=== PATIENT | female | born 1955 | race Asian ===

== ENCOUNTER 2021-03-29 15:30 | Outpatient (CLI) | payer OTHER ==
[2021-03-29 15:50] LABS: PLATELET COUNT 264 K/uL (152-353)
[2021-03-29 16:03] LABS: POTASSIUM 4.2 mmol/L (3.6-5.2)
== END 2021-03-29 20:07 | disposition home or self-care (01) ==
LOC: LAB 15:30
PROVIDERS: ATTEND Family Medicine
DX: Z00.00 Encounter for general adult medical examination without abnormal findings (principal); I10 Essential (primary) hypertension; E11.9 Type 2 diabetes mellitus without complications; K21.9 Gastro-esophageal reflux disease without esophagitis; R53.83 Other fatigue; R53.81 Other malaise; Z79.899 Other long term (current) drug therapy; E53.8 Deficiency of other specified B group vitamins; E55.9 Vitamin D deficiency, unspecified
CPT/HCPCS: 80053; 80061; 82306; 82607; 83036; 84439; 84443; 85027